=== PATIENT | male | born 1990 | race Caucasian/White ===

== ENCOUNTER 2021-02-22 20:06 | Emergency (ER) | payer SELFPAY ==
[~2021-02-22] VITALS: Ht 170.2 cm; Wt 75.0 kg
[2021-02-23] MEDS ORDERED: BACITRACIN ZINC OINT UDPKT TOP ONE (02:15)
[2021-02-23] MEDS ORDERED: TETANUS, DIPHTHERIA, PERTUSSIS VAC/PF 0.5ML (>10YR OLD) IM ONE (02:15)
[2021-02-23] MEDS ORDERED: IBUPROFEN 400MG TABLET PO ONE (03:00)
[2021-02-23] MEDS ORDERED: ACETAMINOPHEN 325MG TABLET PO ONE (03:00)
[2021-02-23] MEDS ORDERED: SILVER NITRATE APPLICATOR STICK TOP ONE (03:15)
[2021-02-23] MEDS ORDERED: LIDOCAINE HCL/PF 1% 10 MG/ML 5ML VIAL INFIL ONE (03:15)
[2021-02-23] MEDS ORDERED: CEPH500C2 MT (03:56)
[2021-02-23] MEDS ORDERED: TOPUD MT (03:56)
[2021-02-23 04:31] VITALS: BP 135/76
== END 2021-02-23 04:33 | disposition home or self-care (01) ==
LOC: ER 20:06
DX: S56.392A Other injury of extensor or abductor muscles, fascia and tendons of left thumb at forearm level, initial encounter (principal); M79.645 Pain in left finger(s); X58.XXXA Exposure to other specified factors, initial encounter; Y93.89 Activity, other specified; Y92.89 Other specified places as the place of occurrence of the external cause; Y99.8 Other external cause status
CPT/HCPCS: 73140; 90471; 90715; 99284; J3490; Z7610